=== PATIENT | female | born 2000 | race Two or more races ===

== ENCOUNTER 2021-03-31 21:43 | Emergency (ER) | payer OTHER ==
[~2021-03-31] VITALS: Ht 170.2 cm; Wt 57.7 kg
[2021-03-31 23:20] VITALS: BP 113/79
[2021-03-31] MEDS ORDERED: DIPH25CA58 PO (23:20)
[2021-03-31] MEDS ORDERED: PRED20TA PO (23:20)
--- NOTE | 2021-03-31 23:20 | PHYS DOC ---
Past Medical History Past Medical History: No Pertinent History Past Surgical History: No Surgical History Smoking Status: Never Smoker Alcohol Use: None Drug Use: None General Adult EDM: Chief Complaint: SKIN RASH/ABSCESS HPI: HPI: Patient is a 20 year old female who presents with a skin rash. The patient r eports developing a rash on her right wrist after handling her dog. She believes it is from poison beryl. The rash is now present on her bilateral wrists, face, posterior neck, and abdomen. Patient reports pruritus and that the rash has begun to blister. The patient denies significant pain at this time. Denies recent illness or sick contacts. Denies fever, headache, chest pain, SOB, vomiting, or diarrhea at this time. Review of Systems: Review of Systems: Constitutional: Denies fever or chills Eyes: Denies redness or eye pain HENT: Denies nasal congestion or sore throat Respiratory: Denies cough or shortness of breath Cardiovascular: Denies chest pain or palpitations GI: Denies abdominal pain, nausea, or vomiting : Denies dysuria or hematuria Musculoskeletal: Denies back pain or joint pain Integument: Reports rash on BL extremities, face, abdomen and neck Neurologic: Denies headache, focal weakness or sensory changes Complete systems were reviewed and found to be within normal limits, except as documented in this note. Heart Score: C/O Chest Pain: N/A Physical Exam: PE: Constitutional: Well developed, well nourished, no acute distress, non-toxic appearance HENT: Normocephalic, atraumatic Eyes: PERRL, EOMI, conjunctiva normal, no discharge Neck: Normal range of motion, no tenderness, supple Lungs & Thorax: No respiratory distress, equal chest rise and fall Abdomen: Soft, no tenderness, bowel sounds active throughout Skin: Eyrthematous rash present on bilateral wrists, face, abdomen, and neck consistent with poison beryl exposure, otherwise warm and dry, Back: No tenderness, no CVA tenderness Extremities: No tenderness, ROM intact, no edema Neurologic: Alert and oriented X 3, normal motor function, normal sensory function, no focal deficits noted Psychologic: Affect normal, judgment normal Course & Med Decision Making: Course & Med Decision Making Patient is a 20 year old female who presents for a skin rash on bilateral wrists, abdomen, face and neck. Patient reports being exposed to poison beryl after handling her dog. Diphenhydramine and dexamethasone were prescribed to help relieve the pruritus. Patient stable for discharge with outpatient follow-up with PCP. Discussed findings and plan with patient, who acknowledges understanding and agreement. Shalini Disclaimer: Shalini Disclaimer: This electronic medical record was generated, in whole or in part, using a voice recognition dictation system. Departure Departure Impression: Primary Impression: Pruritic rash Disposition: HOME / SELF CARE / HOMELESS Condition: STABLE Patient Instructions: Poison Beryl, [id number], Rash, [id number] Scripts Diphenhydramine Hcl (BENADRYL) 25 Mg Capsule 1 CAP PO Q6HRS PRN for RASH, #30 CAP 0 Refills Prov: WALDEMAR VAZQUEZ DO 03/31/21 Prednisone (PREDNISONE) 20 Mg Tablet 2 TAB PO DAILY, #8 TAB Start this medication tomorrow, Friday04/01/21 Prov: WALDEMAR VAZQUEZ DO 03/31/21 WALDEMAR VAZQUEZ DO Mar 31, 2021 23:20
[2021-03-31] MEDS ORDERED: DEXAMETHASONE 4 MG TABLET PO ONE (23:30)
[2021-03-31] MEDS ORDERED: diphenhydrAMINE HCL 25 MG CAPSULE PO ONE (23:30)
== END 2021-03-31 23:46 | disposition home or self-care (01) ==
LOC: ER 21:43
DX: R21 Rash and other nonspecific skin eruption (principal); L29.9 Pruritus, unspecified
CPT/HCPCS: 99283; Q0163